=== PATIENT | female | born 1950 | race African-American/Black ===

== ENCOUNTER 2016-04-27 06:20 | Inpatient (IN) | payer MEDICARE, OTHER ==
[~2016-04-27] VITALS: Ht 152.4 cm; Wt 63.3 kg
[2016-04-27] VITALS (7 sets, daily range): BP systolic 119–172; BP diastolic 67–98
[~2016-04-27 06:20] MED LIST: BENICAR PO; CARVEDILOL PO; DIALYVITE; DOXAZOSIN; LISI-186 PO; NIFEDIPINE PO; SENSIPAR
[2016-04-27] MEDS ORDERED: IPRATROPIUM BROMIDE (0.02%) 0.5MG/2.5ML NEB HHN STA (06:33)
[2016-04-27] MEDS ORDERED: ALBUTEROL (0.083%) 2.5MG/3ML NEB HHN STA (06:33)
[2016-04-27] MEDS ORDERED: NIFEDIPINE XL 60MG TAB PO ONE (06:45)
[2016-04-27] MEDS ORDERED: LOSARTAN POTASSIUM 100 MG TABLET PO ONE (06:45)
[2016-04-27] MEDS ORDERED: CARVEDILOL 25MG TABLET PO ONE (06:45)
[2016-04-27] MEDS ORDERED: NITROGLYCERIN OINT 1GM/INCH UDPKT TD STA (06:53)
[2016-04-27] MEDS ORDERED: NITROGLYCERIN 0.4MG TABLET SL SL PRN (07:00)
[2016-04-27 07:11] LABS: BASOPHILS % 1.2 % (0.0-2.0); EOSINOPHILS % 2.4 % (0.0-5.0); HEMATOCRIT. 34.9 % (36.0-48.0); HEMOGLOBIN. 11.4 g/dL (12.0-16.0); LYMPHOCYTES % 17.3 % (20.0-50.0); MEAN CORPUSCULAR HEMOGLOBIN 30.7 pg (28.0-32.0); MEAN CORPUSCULAR HGB CONC 32.8 g/dL (31.0-37.0); MEAN CORPUSCULAR VOLUME 93.7 fL (81.0-99.0); MEAN PLATELET VOLUME 8.1 fl (7.4-10.4); MONOCYTES % 8.4 % (2.0-8.0); NEUTROPHILS % 70.7 % (40.0-76.0); PLATELET 229 x1000/uL (130-400); RED BLOOD CELL COUNT 3.72 mill/uL (4.2-5.4); RED CELL DISTRIBUTION WIDTH 16.1 % (11.6-14.6); WHITE BLOOD COUNT 6.8 x1000/uL (4.5-11.0)
[2016-04-27 07:12] LABS: INR 1.1; PARTIAL THROMBOPLASTIN TIME 26.8 sec (24.0-34.0); PROTHROMBIN TIME 11.1 sec
[2016-04-27 07:13] LABS: BG BASE EXCESS -1.5 mmol/L (-2.0-2.0); BG CARBOXYHEMOGLOBIN 1.6 % (0.5-1.5); BG DEOXYHEMOGLOBIN 0.9 % (0.0-5.0); BG FRACTION INSPIRED OXYGEN 45; BG HCO3 ACT 23.9 mmol/L (22.0-26.0); BG METHEMOGLOBIN 0.1 % (0.0-1.5); BG OXYGEN SATURATION 99.1 % (92.0-98.5); BG OXYHEMOGLOBIN 97.4 % (94.0-97.0); BG PCO2 42.6 mmHg (35.0-45.0); BG PH 7.366 (7.350-7.450); BG SAMPLE SITE RIGHT RADIAL; BG TOTAL HEMOGLOBIN 11.6 g/dL (12.0-18.0)
[2016-04-27 07:21] LABS: ALANINE AMINOTRANSFERASE 23 IU/L (13-61); ALBUMIN 3.4 g/dL (3.4-5.0); ANION GAP 17; CALCIUM 8.9 mg/dL (8.5-10.1); CARBON DIOXIDE 27 mEq/L (21-32); CHLORIDE 103 mEq/L (98-107); INDEX HEMOLYSI 1 (1-3); INDEX ICTERIC 1 (1-4); INDEX LIPEMIC 1 (1-3); LIPASE 970 IU/L (73-393); MAGNESIUM 2.4 mg/dL (1.8-2.4); PHOSPHORUS 5.9 mg/dL (2.5-4.9); TROPONIN I 0.22 ng/mL (0.00-0.04); UREA NITROGEN BLOOD 56 mg/dL (7-21); eGFR 5 mL/min (>60)
[2016-04-27] MEDS ORDERED: HYDROCODONE/ACETAMINOPHEN 5/325MG TABLET PO PRN (08:30)
[2016-04-27] MEDS ORDERED: DIPHENHYDRAMINE 50MG/ML VIAL IV PRN (08:30)
[2016-04-27] MEDS ORDERED: ACETAMINOPHEN 325MG TABLET PO PRN (08:30)
[2016-04-27] MEDS ORDERED: HYDRALAZINE HCL 50MG TABLET PO SCH (09:00)
[2016-04-27] MEDS ORDERED: CINACALCET HCL 60MG TABLET PO SCH (09:00)
[2016-04-27] MEDS ORDERED: CARVEDILOL 12.5MG TABLET PO SCH (09:11)
[2016-04-27] MEDS: IPRATROPIUM/ALBUTEROL 0.5-3(2.5)MG/3ML NEB INH PRN ×2 (11:06→17:42)
[2016-04-27] MEDS: SEVELAMER CARBONATE 800 MG TABLET PO SCH ×2 (12:09→17:34)
[2016-04-27] MEDS: CINACALCET HCL 60MG TABLET PO SCH (12:09)
[2016-04-27] MEDS: CLONIDINE 0.1MG TABLET PO PRN (15:04)
[2016-04-27] MEDS: CARVEDILOL 25MG TABLET PO SCH (21:08)
[2016-04-27] MEDS: ENOXAPARIN 30MG/0.3ML SYR SUBCUT SCH (21:08)
[2016-04-28] VITALS (12 sets, daily range): BP systolic 120–169; BP diastolic 65–117
[2016-04-28 06:54] LABS: BASOPHILS % 0.9 % (0.0-2.0); EOSINOPHILS % 1.4 % (0.0-5.0); HEMATOCRIT. 32.5 % (36.0-48.0); HEMOGLOBIN. 10.7 g/dL (12.0-16.0); MEAN CORPUSCULAR HEMOGLOBIN 30.6 pg (28.0-32.0); MEAN CORPUSCULAR HGB CONC 32.9 g/dL (31.0-37.0); MEAN CORPUSCULAR VOLUME 92.8 fL (81.0-99.0); MEAN PLATELET VOLUME 8.3 fl (7.4-10.4); MONOCYTES % 12.5 % (2.0-8.0); NEUTROPHILS % 71.2 % (40.0-76.0); PLATELET 195 x1000/uL (130-400); RED CELL DISTRIBUTION WIDTH 15.8 % (11.6-14.6); WHITE BLOOD COUNT 6.3 x1000/uL (4.5-11.0)
[2016-04-28 07:23] LABS: ALANINE AMINOTRANSFERASE 14 IU/L (13-61); ALBUMIN 2.9 g/dL (3.4-5.0); ANION GAP 17; CALCIUM 8.5 mg/dL (8.5-10.1); CARBON DIOXIDE 28 mEq/L (21-32); CHLORIDE 96 mEq/L (98-107); HDL CHOLESTEROL 69 mg/dL (40-59); INDEX HEMOLYSI 2 (1-3); INDEX ICTERIC 1 (1-4); INDEX LIPEMIC 1 (1-3); LDL CHOLESTEROL 99 mg/dL (5-100); PHOSPHORUS 5.8 mg/dL (2.5-4.9); TRIGLYCERIDE 62 mg/dL (0-150); UREA NITROGEN BLOOD 33 mg/dL (7-21); eGFR 8 mL/min (>60)
[2016-04-28] MEDS: NIFEDIPINE XL 60MG TAB PO SCH (08:49)
[2016-04-28] MEDS: CARVEDILOL 25MG TABLET PO SCH ×2 (08:49→20:16)
[2016-04-28] MEDS: CINACALCET HCL 60MG TABLET PO SCH (08:49)
[2016-04-28] MEDS: SEVELAMER CARBONATE 800 MG TABLET PO SCH ×3 (08:49→18:31)
[2016-04-28] MEDS ORDERED: LISINOPRIL 5MG TABLET PO SCH (09:00)
[2016-04-28] MEDS: LOSARTAN POTASSIUM 100 MG TABLET PO SCH (09:30)
[2016-04-28] MEDS: GUAIFENESIN 600MG ER TABLET PO SCH ×2 (09:40→20:16)
[2016-04-28] MEDS: IPRATROPIUM/ALBUTEROL 0.5-3(2.5)MG/3ML NEB INH PRN ×3 (10:40→21:33)
[2016-04-28] MEDS ORDERED: REGADENOSON 0.4 MG/5 ML IV ONE (13:45)
[2016-04-28] MEDS: MUPIROCIN 2% OINT 22GM TOP SCH ×2 (16:16→21:35)
[2016-04-28] MEDS ORDERED: VANCOMYCIN HCL 1 GM/VIAL PO SCH (18:00)
[2016-04-28] MEDS: VANCOMYCIN HCL 1000 MG/20 ML ORAL PO SCH ×2 (18:32→23:15)
[2016-04-28] MEDS: ENOXAPARIN 30MG/0.3ML SYR SUBCUT SCH (20:17)
[2016-04-29] VITALS (10 sets, daily range): BP systolic 118–193; BP diastolic 58–113
[2016-04-29] MEDS: IPRATROPIUM/ALBUTEROL 0.5-3(2.5)MG/3ML NEB INH PRN (02:07)
[2016-04-29] MEDS: MUPIROCIN 2% OINT 22GM TOP SCH ×3 (05:29→22:04)
[2016-04-29] MEDS: VANCOMYCIN HCL 1000 MG/20 ML ORAL PO SCH ×4 (05:29→23:58)
[2016-04-29 05:57] LABS: BASOPHILS % 0.8 % (0.0-2.0); EOSINOPHILS % 1.8 % (0.0-5.0); HEMATOCRIT. 32.3 % (36.0-48.0); HEMOGLOBIN. 10.7 g/dL (12.0-16.0); MEAN CORPUSCULAR HGB CONC 33.1 g/dL (31.0-37.0); MEAN CORPUSCULAR VOLUME 93.5 fL (81.0-99.0); MONOCYTES % 14.8 % (2.0-8.0); NEUTROPHILS % 64.6 % (40.0-76.0); PLATELET 145 x1000/uL (130-400); RED BLOOD CELL COUNT 3.46 mill/uL (4.2-5.4); RED CELL DISTRIBUTION WIDTH 15.6 % (11.6-14.6); WHITE BLOOD COUNT 5.2 x1000/uL (4.5-11.0)
[2016-04-29 06:19] LABS: CALCIUM 8.3 mg/dL (8.5-10.1)
[2016-04-29 07:01] LABS: PHOSPHORUS 8.1 mg/dL (2.5-4.9)
[2016-04-29] MEDS: SEVELAMER CARBONATE 800 MG TABLET PO SCH ×4 (08:00→17:53)
[2016-04-29] MEDS ORDERED: SODIUM POLYSTYRENE SULFONATE 15 G/60 ML BOT PO SCH (08:15)
[2016-04-29] MEDS: LOSARTAN POTASSIUM 100 MG TABLET PO SCH (08:17)
[2016-04-29] MEDS: GUAIFENESIN 600MG ER TABLET PO SCH ×2 (08:17→20:39)
[2016-04-29] MEDS: NIFEDIPINE XL 60MG TAB PO SCH (08:18)
[2016-04-29] MEDS: CINACALCET HCL 60MG TABLET PO SCH (08:18)
[2016-04-29] MEDS: CARVEDILOL 25MG TABLET PO SCH ×2 (08:19→20:40)
[2016-04-29] MEDS: ENOXAPARIN 60MG/0.6ML SYR SUBCUT SCH (11:35)
[2016-04-29] MEDS: ASPIRIN 81MG EC TABLET PO SCH (11:35)
[2016-04-29] MEDS: ATORVASTATIN CALCIUM 20MG TABLET PO SCH (20:39)
[2016-04-30] VITALS (8 sets, daily range): BP systolic 105–160; BP diastolic 51–95
[2016-04-30] MEDS: IPRATROPIUM/ALBUTEROL 0.5-3(2.5)MG/3ML NEB INH PRN ×4 (01:17→12:26)
[2016-04-30] MEDS: MUPIROCIN 2% OINT 22GM TOP SCH ×3 (05:16→21:25)
[2016-04-30] MEDS: VANCOMYCIN HCL 1000 MG/20 ML ORAL PO SCH ×4 (05:16→23:32)
[2016-04-30 05:48] LABS: BASOPHILS % 0.8 % (0.0-2.0); EOSINOPHILS % 2.8 % (0.0-5.0); HEMATOCRIT. 32.8 % (36.0-48.0); HEMOGLOBIN. 10.8 g/dL (12.0-16.0); LYMPHOCYTES % 21.6 % (20.0-50.0); MEAN CORPUSCULAR HEMOGLOBIN 30.7 pg (28.0-32.0); MEAN CORPUSCULAR HGB CONC 32.9 g/dL (31.0-37.0); MEAN CORPUSCULAR VOLUME 93.2 fL (81.0-99.0); MEAN PLATELET VOLUME 8.5 fl (7.4-10.4); MONOCYTES % 14.4 % (2.0-8.0); NEUTROPHILS % 60.4 % (40.0-76.0); PLATELET 170 x1000/uL (130-400); RED BLOOD CELL COUNT 3.52 mill/uL (4.2-5.4); RED CELL DISTRIBUTION WIDTH 15.7 % (11.6-14.6)
[2016-04-30 06:57] LABS: CALCIUM 8.2 mg/dL (8.5-10.1); PHOSPHORUS 7.8 mg/dL (2.5-4.9)
[2016-04-30] MEDS: SEVELAMER CARBONATE 800 MG TABLET PO SCH ×3 (07:40→19:36)
[2016-04-30] MEDS: CLONIDINE 0.1MG TABLET PO PRN (08:02)
[2016-04-30] MEDS: ENOXAPARIN 60MG/0.6ML SYR SUBCUT SCH (10:40)
[2016-04-30] MEDS: NIFEDIPINE XL 60MG TAB PO SCH (10:40)
[2016-04-30] MEDS: CINACALCET HCL 60MG TABLET PO SCH (10:40)
[2016-04-30] MEDS: GUAIFENESIN 600MG ER TABLET PO SCH ×2 (10:40→21:21)
[2016-04-30] MEDS: ASPIRIN 81MG EC TABLET PO SCH (10:40)
[2016-04-30] MEDS: CARVEDILOL 25MG TABLET PO SCH ×2 (10:41→21:21)
[2016-04-30] MEDS: LOSARTAN POTASSIUM 100 MG TABLET PO SCH (10:42)
[2016-04-30] MEDS ORDERED: METHYLPREDNISOLONE SOD SUCC 125 MG/2 ML VIAL IV SCH (13:15)
[2016-04-30] MEDS: RACEPINEPHRINE 2.25% 0.5ML NEB VIAL HHN PRN ×2 (15:47→19:53)
[2016-04-30] MEDS: IPRATROPIUM/ALBUTEROL 0.5-3(2.5)MG/3ML NEB HHN SCH ×2 (15:47→19:53)
[2016-04-30] MEDS: ONDANSETRON HCL 4MG/2ML VIAL IV PRN (20:27)
[2016-04-30] MEDS: ATORVASTATIN CALCIUM 20MG TABLET PO SCH (21:20)
[2016-04-30] MEDS: METHYLPREDNISOLONE SOD SUCC 125 MG/2 ML VIAL IV SCH (21:25)
[2016-05-01] VITALS (14 sets, daily range): BP systolic 109–153; BP diastolic 45–80
[2016-05-01] MEDS: IPRATROPIUM/ALBUTEROL 0.5-3(2.5)MG/3ML NEB HHN SCH ×6 (00:42→20:39)
[2016-05-01] MEDS: RACEPINEPHRINE 2.25% 0.5ML NEB VIAL HHN PRN ×3 (00:42→08:38)
[2016-05-01] MEDS: METHYLPREDNISOLONE SOD SUCC 125 MG/2 ML VIAL IV SCH ×3 (05:49→21:13)
[2016-05-01] MEDS: VANCOMYCIN HCL 1000 MG/20 ML ORAL PO SCH ×4 (05:49→23:40)
[2016-05-01] MEDS: MUPIROCIN 2% OINT 22GM TOP SCH ×3 (05:49→21:14)
[2016-05-01 06:16] LABS: HEMATOCRIT. 35.9 % (36.0-48.0); HEMOGLOBIN. 11.7 g/dL (12.0-16.0); MEAN CORPUSCULAR HEMOGLOBIN 30.8 pg (28.0-32.0); MEAN CORPUSCULAR HGB CONC 32.7 g/dL (31.0-37.0); MEAN CORPUSCULAR VOLUME 94.2 fL (81.0-99.0); MEAN PLATELET VOLUME 8.4 fl (7.4-10.4); PLATELET 164 x1000/uL (130-400); RED BLOOD CELL COUNT 3.81 mill/uL (4.2-5.4); RED CELL DISTRIBUTION WIDTH 15.2 % (11.6-14.6); WHITE BLOOD COUNT 5.7 x1000/uL (4.5-11.0)
[2016-05-01 06:51] LABS: CALCIUM 8.7 mg/dL (8.5-10.1); PHOSPHORUS 7.6 mg/dL (2.5-4.9)
[2016-05-01 07:04] LABS: DIFFERENTIAL COMMENT 1
[2016-05-01] MEDS: CARVEDILOL 25MG TABLET PO SCH ×2 (09:00→21:13)
[2016-05-01] MEDS ORDERED: LISINOPRIL 5MG TABLET PO SCH ×2 (09:00)
[2016-05-01] MEDS: LOSARTAN POTASSIUM 25 MG TABLET PO SCH (09:33)
[2016-05-01] MEDS: ASPIRIN 81MG EC TABLET PO SCH (09:34)
[2016-05-01] MEDS: GUAIFENESIN 600MG ER TABLET PO SCH ×2 (09:34→21:13)
[2016-05-01] MEDS: NIFEDIPINE XL 60MG TAB PO SCH (09:35)
[2016-05-01] MEDS: ENOXAPARIN 60MG/0.6ML SYR SUBCUT SCH (09:36)
[2016-05-01 11:18] LABS: PLATELET ESTIMATE NORMAL
[2016-05-01] MEDS: CINACALCET HCL 60MG TABLET PO SCH (12:23)
[2016-05-01] MEDS: SEVELAMER CARBONATE 800 MG TABLET PO SCH ×3 (12:48→17:56)
[2016-05-01] MEDS ORDERED: SODIUM POLYSTYRENE SULFONATE 15 G/60 ML BOT PO NR (14:30)
[2016-05-01] MEDS: ATORVASTATIN CALCIUM 20MG TABLET PO SCH (21:00)
[2016-05-02] VITALS (24 sets, daily range): BP systolic 104–161; BP diastolic 51–116
[2016-05-02] MEDS: IPRATROPIUM/ALBUTEROL 0.5-3(2.5)MG/3ML NEB HHN SCH ×6 (00:27→20:27)
[2016-05-02] MEDS: VANCOMYCIN HCL 1000 MG/20 ML ORAL PO SCH ×4 (05:23→23:33)
[2016-05-02] MEDS: METHYLPREDNISOLONE SOD SUCC 125 MG/2 ML VIAL IV SCH (05:24)
[2016-05-02] MEDS: MUPIROCIN 2% OINT 22GM TOP SCH ×3 (05:29→21:12)
[2016-05-02] MEDS: SEVELAMER CARBONATE 800 MG TABLET PO SCH ×4 (06:43→17:56)
[2016-05-02 07:51] LABS: HEMATOCRIT. 34.6 % (36.0-48.0); HEMOGLOBIN. 11.3 g/dL (12.0-16.0); MEAN CORPUSCULAR HEMOGLOBIN 30.4 pg (28.0-32.0); MEAN CORPUSCULAR HGB CONC 32.7 g/dL (31.0-37.0); MEAN PLATELET VOLUME 8.5 fl (7.4-10.4); PLATELET 171 x1000/uL (130-400); RED BLOOD CELL COUNT 3.72 mill/uL (4.2-5.4); WHITE BLOOD COUNT 9.4 x1000/uL (4.5-11.0)
[2016-05-02 07:55] LABS: DIFFERENTIAL COMMENT 1
[2016-05-02] MEDS: ASPIRIN 81MG EC TABLET PO SCH (08:04)
[2016-05-02] MEDS: GUAIFENESIN 600MG ER TABLET PO SCH ×2 (08:04→20:22)
[2016-05-02] MEDS: CINACALCET HCL 60MG TABLET PO SCH (08:04)
[2016-05-02] MEDS: LOSARTAN POTASSIUM 25 MG TABLET PO SCH (08:06)
[2016-05-02] MEDS: NIFEDIPINE XL 60MG TAB PO SCH (08:06)
[2016-05-02] MEDS: ENOXAPARIN 60MG/0.6ML SYR SUBCUT SCH (08:06)
[2016-05-02] MEDS: CARVEDILOL 25MG TABLET PO SCH ×2 (08:06→20:22)
[2016-05-02 08:19] LABS: CALCIUM 8.1 mg/dL (8.5-10.1); MAGNESIUM 2.4 mg/dL (1.8-2.4); PHOSPHORUS 6.7 mg/dL (2.5-4.9)
[2016-05-02 09:20] LABS: TROPONIN I 0.71 ng/mL (0.00-0.04)
[2016-05-02 10:25] LABS: PLATELET ESTIMATE NORMAL
[2016-05-02] MEDS: ATORVASTATIN CALCIUM 20MG TABLET PO SCH (20:20)
[2016-05-02] MEDS: METHYLPREDNISOLONE SOD SUCC 40 MG/ML VIAL IV SCH (20:21)
[2016-05-03] VITALS (29 sets, daily range): BP systolic 114–181; BP diastolic 55–99
[2016-05-03] MEDS: IPRATROPIUM/ALBUTEROL 0.5-3(2.5)MG/3ML NEB HHN SCH ×6 (04:22→20:20)
[2016-05-03] MEDS: MUPIROCIN 2% OINT 22GM TOP SCH ×3 (06:00→21:18)
[2016-05-03] MEDS: VANCOMYCIN HCL 1000 MG/20 ML ORAL PO SCH ×3 (06:00→17:58)
[2016-05-03 06:59] LABS: HEMOGLOBIN. 11.9 g/dL (12.0-16.0); MEAN CORPUSCULAR HEMOGLOBIN 30.6 pg (28.0-32.0); MEAN CORPUSCULAR HGB CONC 32.9 g/dL (31.0-37.0); MEAN CORPUSCULAR VOLUME 93.1 fL (81.0-99.0); MEAN PLATELET VOLUME 8.5 fl (7.4-10.4); PLATELET 186 x1000/uL (130-400); RED BLOOD CELL COUNT 3.87 mill/uL (4.2-5.4); RED CELL DISTRIBUTION WIDTH 15.1 % (11.6-14.6); WHITE BLOOD COUNT 9.5 x1000/uL (4.5-11.0)
[2016-05-03 07:08] LABS: MAGNESIUM 2.4 mg/dL (1.8-2.4)
[2016-05-03 07:09] LABS: PHOSPHORUS 5.4 mg/dL (2.5-4.9)
[2016-05-03 07:25] LABS: DIFFERENTIAL COMMENT 1
[2016-05-03] MEDS: ENOXAPARIN 60MG/0.6ML SYR SUBCUT SCH (08:01)
[2016-05-03] MEDS: CARVEDILOL 25MG TABLET PO SCH ×2 (08:03→21:35)
[2016-05-03] MEDS: GUAIFENESIN 600MG ER TABLET PO SCH ×2 (08:03→21:18)
[2016-05-03] MEDS: ASPIRIN 81MG EC TABLET PO SCH (08:03)
[2016-05-03] MEDS: SEVELAMER CARBONATE 800 MG TABLET PO SCH ×3 (08:03→17:58)
[2016-05-03] MEDS: METHYLPREDNISOLONE SOD SUCC 40 MG/ML VIAL IV SCH (08:03)
[2016-05-03] MEDS: NIFEDIPINE XL 60MG TAB PO SCH (08:04)
[2016-05-03] MEDS: LOSARTAN POTASSIUM 25 MG TABLET PO SCH (08:04)
[2016-05-03] MEDS: CINACALCET HCL 60MG TABLET PO SCH (08:04)
[2016-05-03 10:40] LABS: PLATELET ESTIMATE NORMAL
[2016-05-03] MEDS ORDERED: METHYLPREDNISOLONE SOD SUCC 40 MG/ML VIAL IV SCH (21:00)
[2016-05-03] MEDS: ATORVASTATIN CALCIUM 20MG TABLET PO SCH ×2 (21:00→21:18)
[2016-05-04] VITALS (36 sets, daily range): BP systolic 67–153; BP diastolic 27–90
[2016-05-04] MEDS: VANCOMYCIN HCL 1000 MG/20 ML ORAL PO SCH ×3 (00:05→13:06)
[2016-05-04] MEDS: IPRATROPIUM/ALBUTEROL 0.5-3(2.5)MG/3ML NEB HHN SCH ×4 (00:36→11:52)
[2016-05-04] MEDS: MUPIROCIN 2% OINT 22GM TOP SCH ×2 (05:17→13:06)
[2016-05-04 06:22] LABS: HEMATOCRIT. 36.8 % (36.0-48.0); HEMOGLOBIN. 11.9 g/dL (12.0-16.0); MEAN CORPUSCULAR HEMOGLOBIN 30.4 pg (28.0-32.0); MEAN CORPUSCULAR HGB CONC 32.2 g/dL (31.0-37.0); MEAN CORPUSCULAR VOLUME 94.4 fL (81.0-99.0); MEAN PLATELET VOLUME 9.1 fl (7.4-10.4); PLATELET 219 x1000/uL (130-400); RED CELL DISTRIBUTION WIDTH 14.9 % (11.6-14.6); WHITE BLOOD COUNT 11.7 x1000/uL (4.5-11.0)
[2016-05-04 06:47] LABS: CALCIUM 8.7 mg/dL (8.5-10.1); MAGNESIUM 2.2 mg/dL (1.8-2.4); PHOSPHORUS 6.1 mg/dL (2.5-4.9)
[2016-05-04 06:54] LABS: DIFFERENTIAL COMMENT 1
[2016-05-04] MEDS ORDERED: PREDNISONE 20MG TABLET PO SCH (07:20)
[2016-05-04] MEDS: GUAIFENESIN 600MG ER TABLET PO SCH (08:20)
[2016-05-04] MEDS: SEVELAMER CARBONATE 800 MG TABLET PO SCH ×2 (08:20→13:06)
[2016-05-04] MEDS: ASPIRIN 81MG EC TABLET PO SCH (08:20)
[2016-05-04] MEDS: CINACALCET HCL 60MG TABLET PO SCH (08:20)
[2016-05-04] MEDS: CARVEDILOL 25MG TABLET PO SCH (08:22)
[2016-05-04] MEDS: NIFEDIPINE XL 60MG TAB PO SCH (08:22)
[2016-05-04] MEDS ORDERED: ENOXAPARIN 60MG/0.6ML SYR SUBCUT SCH (09:00)
[2016-05-04] MEDS ORDERED: LOSARTAN POTASSIUM 25 MG TABLET PO SCH (09:00)
[2016-05-04] MEDS: ONDANSETRON HCL 4MG/2ML VIAL IV PRN (10:21)
[2016-05-04 11:18] LABS: PLATELET ESTIMATE NORMAL
[2016-05-04] MEDS ORDERED: CALCIUM ACETATE 667MG CAPSULE PO SCH (17:20)
[2016-05-05 04:26] LABS: OVA & PARASITE EXAM Final report (.)
== END 2016-05-04 14:07 | disposition home or self-care (01) | DRG 280 ==
LOC: ER 06:26 → 5EST 07:01 → 8WST 04-29 23:20 → 3WST 04-30 16:13
PROVIDERS: ADMIT Internal Medicine; ATTEND Internal Medicine
PROC: 5A1D60Z (ICD-10-PCS; principal; 2016-04-27)
DX: I21.4 Non-ST elevation (NSTEMI) myocardial infarction (principal); N18.6 End stage renal disease; A04.7 Enterocolitis due to Clostridium difficile; I13.2 Hypertensive heart and chronic kidney disease with heart failure and with stage 5 chronic kidney disease, or end stage renal disease; D63.1 Anemia in chronic kidney disease; I27.2 Other secondary pulmonary hypertension; E87.5 Hyperkalemia; E78.5 Hyperlipidemia, unspecified; E83.39 Other disorders of phosphorus metabolism; I07.1 Rheumatic tricuspid insufficiency; I25.10 Atherosclerotic heart disease of native coronary artery without angina pectoris; I27.81 Cor pulmonale (chronic); I50.9 Heart failure, unspecified; J31.0 Chronic rhinitis; J39.8 Other specified diseases of upper respiratory tract; K44.9 Diaphragmatic hernia without obstruction or gangrene; K57.30 Diverticulosis of large intestine without perforation or abscess without bleeding; K80.20 Calculus of gallbladder without cholecystitis without obstruction; N20.0 Calculus of kidney; N28.1 Cyst of kidney, acquired; R56.9 Unspecified convulsions; Z82.49 Family history of ischemic heart disease and other diseases of the circulatory system; Z83.3 Family history of diabetes mellitus; Z99.2 Dependence on renal dialysis; Z87.01 Personal history of pneumonia (recurrent); Z87.891 Personal history of nicotine dependence; Z90.49 Acquired absence of other specified parts of digestive tract; Z88.5 Allergy status to narcotic agent; Z88.8 Allergy status to other drugs, medicaments and biological substances; Z79.899 Other long term (current) drug therapy
CPT/HCPCS: 36415; 36600; 70490; 71010; 71250; 80048; 80053; 80061; 82270; 82375; 82805; 83690; 83735; 83880; 84100; 84443; 84484; 85025; 85610; 85730; 87015; 87045; 87177; 87209; 87427; 87449; 87493; 93005; 93306; 94640; 94664; 99291; J1200; J1650; J2405; J2920; J2930; J3370; J7030; J7512; J7611; J7620

== ENCOUNTER 2016-05-09 06:19 | Inpatient (IN) | payer MEDICARE, OTHER ==
[2016-05-09] VITALS (7 sets, daily range): BP systolic 134–227; BP diastolic 69–127
[~2016-05-09] VITALS: Ht 157.5 cm; Wt 65.1 kg
[2016-05-09] MEDS ORDERED: IPRATROPIUM/ALBUTEROL 0.5-3(2.5)MG/3ML NEB HHN ONE (06:45)
[2016-05-09 06:55] LABS: BASOPHILS % 0.4 % (0.0-2.0); EOSINOPHILS % 1.7 % (0.0-5.0); HEMATOCRIT. 35.8 % (36.0-48.0); HEMOGLOBIN. 11.6 g/dL (12.0-16.0); LYMPHOCYTES % 11.5 % (20.0-50.0); MEAN CORPUSCULAR HEMOGLOBIN 29.9 pg (28.0-32.0); MEAN CORPUSCULAR HGB CONC 32.4 g/dL (31.0-37.0); MEAN CORPUSCULAR VOLUME 92.3 fL (81.0-99.0); MEAN PLATELET VOLUME 8.2 fl (7.4-10.4); MONOCYTES % 7.5 % (2.0-8.0); NEUTROPHILS % 78.9 % (40.0-76.0); PLATELET 244 x1000/uL (130-400); RED BLOOD CELL COUNT 3.88 mill/uL (4.2-5.4); WHITE BLOOD COUNT 12.8 x1000/uL (4.5-11.0)
[2016-05-09 06:56] LABS: BG BASE EXCESS -4.8 mmol/L (-2.0-2.0); BG CARBOXYHEMOGLOBIN 0.3 % (0.5-1.5); BG DEOXYHEMOGLOBIN 2.6 % (0.0-5.0); BG FRACTION INSPIRED OXYGEN 21; BG HCO3 ACT 21.8 mmol/L (22.0-26.0); BG METHEMOGLOBIN 0.3 % (0.0-1.5); BG OXYGEN SATURATION 97.4 % (92.0-98.5); BG OXYHEMOGLOBIN 96.8 % (94.0-97.0); BG PCO2 46.2 mmHg (35.0-45.0); BG PH 7.291 (7.350-7.450); BG PO2 106.6 mmHg (75.0-100.0); BG SAMPLE SITE RIGHT RADIAL; BG TOTAL HEMOGLOBIN 12.1 g/dL (12.0-18.0); BG VENT MODE ROOM AIR
[2016-05-09 06:59] LABS: INR 1.4; PARTIAL THROMBOPLASTIN TIME 25.6 sec (24.0-34.0); PROTHROMBIN TIME 14.2 sec
[2016-05-09 07:15] LABS: ALANINE AMINOTRANSFERASE 30 IU/L (13-61); ALBUMIN 3.8 g/dL (3.4-5.0); ANION GAP 17; CALCIUM 8.9 mg/dL (8.5-10.1); CARBON DIOXIDE 27 mEq/L (21-32); CHLORIDE 100 mEq/L (98-107); INDEX HEMOLYSI 1 (1-3); INDEX ICTERIC 1 (1-4); INDEX LIPEMIC 1 (1-3); LIPASE 2144 IU/L (73-393); NT PRO B-TYPE NATRIURETIC PEP 28465 pg/mL (5-125); UREA NITROGEN BLOOD 70 mg/dL (7-21); eGFR 6 mL/min (>60)
[2016-05-09 07:16] LABS: TROPONIN I 0.99 ng/mL (0.00-0.04)
[2016-05-09] MEDS ORDERED: DOCUSATE SODIUM 100MG CAPSULE PO PRN (08:45)
[2016-05-09] MEDS ORDERED: ONDANSETRON HCL 4MG/2ML VIAL IV PRN (08:45)
[2016-05-09] MEDS ORDERED: MAGNESIUM/ALUMINUM HYDROXIDE/SIMETHICONE 30ML UDC PO PRN (08:45)
[2016-05-09] MEDS ORDERED: ACETAMINOPHEN 325MG TABLET PO PRN (08:45)
[2016-05-09] MEDS ORDERED: CEFTRIAXONE 1 G PREMIX 50 ML IV SCH (09:00)
[2016-05-09] MEDS: BUDESONIDE 0.5MG/2ML NEB HHN SCH ×2 (09:30→20:51)
[2016-05-09] MEDS ORDERED: IPRATROPIUM/ALBUTEROL 0.5-3(2.5)MG/3ML NEB ONE (09:35)
[2016-05-09] MEDS: CLONIDINE 0.1MG TABLET PO PRN ×2 (10:06→20:32)
[2016-05-09] MEDS: IPRATROPIUM/ALBUTEROL 0.5-3(2.5)MG/3ML NEB INH PRN ×3 (10:12→20:49)
[2016-05-09] MEDS ORDERED: AZITHROMYCIN 500 MG TABLET PO SCH (13:00)
[2016-05-09] MEDS: METHYLPREDNISOLONE SOD SUCC 40 MG/ML VIAL IV SCH ×2 (13:52→21:57)
[2016-05-09] MEDS: HEPARIN 5000 UNITS/ML VIAL SUBCUT SCH ×3 (13:54→20:40)
[2016-05-09] MEDS: CEFTRIAXONE 1 G PREMIX 50 ML IV SCH (16:25)
[2016-05-09] MEDS: RACEPINEPHRINE 2.25% 0.5ML NEB VIAL HHN PRN (20:51)
[2016-05-10] VITALS (12 sets, daily range): BP systolic 120–180; BP diastolic 64–101
[2016-05-10] MEDS: RACEPINEPHRINE 2.25% 0.5ML NEB VIAL HHN PRN ×3 (00:29→09:23)
[2016-05-10] MEDS: IPRATROPIUM/ALBUTEROL 0.5-3(2.5)MG/3ML NEB INH PRN ×3 (00:29→20:39)
[2016-05-10] MEDS: METHYLPREDNISOLONE SOD SUCC 40 MG/ML VIAL IV SCH ×3 (05:42→21:35)
[2016-05-10 06:33] LABS: HEMOGLOBIN. 10.4 g/dL (12.0-16.0); MEAN CORPUSCULAR HEMOGLOBIN 29.9 pg (28.0-32.0); MEAN CORPUSCULAR HGB CONC 32.5 g/dL (31.0-37.0); MEAN PLATELET VOLUME 8.4 fl (7.4-10.4); PLATELET 295 x1000/uL (130-400); RED BLOOD CELL COUNT 3.47 mill/uL (4.2-5.4); RED CELL DISTRIBUTION WIDTH 14.9 % (11.6-14.6); WHITE BLOOD COUNT 11.9 x1000/uL (4.5-11.0)
[2016-05-10 07:04] LABS: MAGNESIUM 2.4 mg/dL (1.8-2.4)
[2016-05-10 07:05] LABS: CREATINE KINASE MB FRACTION 8.8 ng/mL (0.5-3.6)
[2016-05-10 07:30] LABS: DIFFERENTIAL COMMENT 1
[2016-05-10 08:19] LABS: TROPONIN I 0.81 ng/mL (0.00-0.04)
[2016-05-10] MEDS: HEPARIN 5000 UNITS/ML VIAL SUBCUT SCH ×2 (09:00→21:33)
[2016-05-10] MEDS: BUDESONIDE 0.5MG/2ML NEB HHN SCH ×2 (09:23→20:39)
[2016-05-10] MEDS: CARVEDILOL 12.5MG TABLET PO SCH ×2 (09:36→21:34)
[2016-05-10] MEDS: LOSARTAN POTASSIUM 50 MG TABLET PO SCH (09:36)
[2016-05-10] MEDS: NIFEDIPINE XL 60MG TAB PO SCH (09:37)
[2016-05-10] MEDS: LACTOBACILLUS GG CAPSULE PO SCH (09:37)
[2016-05-10] MEDS: FOLIC ACID/VITAMIN B COMP W-C TABLET PO SCH (09:37)
[2016-05-10] MEDS: CINACALCET HCL 60MG TABLET PO SCH (09:37)
[2016-05-10] MEDS: CEFTRIAXONE 1 G PREMIX 50 ML IV SCH (09:38)
[2016-05-10 12:01] LABS: PLATELET ESTIMATE NORMAL
[2016-05-10] MEDS: SEVELAMER CARBONATE 800 MG TABLET PO SCH ×2 (14:15→18:34)
[2016-05-10] MEDS: ATORVASTATIN CALCIUM 40MG TABLET PO SCH (21:34)
[2016-05-11] VITALS (12 sets, daily range): BP systolic 102–157; BP diastolic 51–106
[2016-05-11 05:43] LABS: HEMATOCRIT. 29.7 % (36.0-48.0); HEMOGLOBIN. 9.8 g/dL (12.0-16.0); MEAN CORPUSCULAR HEMOGLOBIN 30.2 pg (28.0-32.0); MEAN CORPUSCULAR HGB CONC 32.8 g/dL (31.0-37.0); MEAN PLATELET VOLUME 8.2 fl (7.4-10.4); PLATELET 256 x1000/uL (130-400); RED BLOOD CELL COUNT 3.23 mill/uL (4.2-5.4); RED CELL DISTRIBUTION WIDTH 14.8 % (11.6-14.6); WHITE BLOOD COUNT 12.2 x1000/uL (4.5-11.0)
[2016-05-11] MEDS: METHYLPREDNISOLONE SOD SUCC 40 MG/ML VIAL IV SCH ×3 (06:10→21:02)
[2016-05-11 06:39] LABS: CALCIUM 8.7 mg/dL (8.5-10.1)
[2016-05-11 06:59] LABS: DIFFERENTIAL COMMENT 1
[2016-05-11] MEDS: CEFTRIAXONE 1 G PREMIX 50 ML IV SCH (08:25)
[2016-05-11] MEDS: FOLIC ACID/VITAMIN B COMP W-C TABLET PO SCH (08:26)
[2016-05-11] MEDS: LACTOBACILLUS GG CAPSULE PO SCH (08:26)
[2016-05-11] MEDS: SEVELAMER CARBONATE 800 MG TABLET PO SCH ×3 (08:26→18:26)
[2016-05-11] MEDS: CARVEDILOL 12.5MG TABLET PO SCH ×2 (08:26→20:34)
[2016-05-11] MEDS: CINACALCET HCL 60MG TABLET PO SCH (08:26)
[2016-05-11] MEDS: NIFEDIPINE XL 60MG TAB PO SCH (08:26)
[2016-05-11] MEDS: LOSARTAN POTASSIUM 50 MG TABLET PO SCH (08:26)
[2016-05-11] MEDS: HEPARIN 5000 UNITS/ML VIAL SUBCUT SCH ×2 (08:27→20:35)
[2016-05-11] MEDS: BUDESONIDE 0.5MG/2ML NEB HHN SCH ×2 (09:08→20:20)
[2016-05-11] MEDS: IPRATROPIUM/ALBUTEROL 0.5-3(2.5)MG/3ML NEB INH PRN ×3 (09:08→20:19)
[2016-05-11] MEDS: RACEPINEPHRINE 2.25% 0.5ML NEB VIAL HHN PRN (09:16)
[2016-05-11 17:06] LABS: PLATELET ESTIMATE NORMAL
[2016-05-11] MEDS: ATORVASTATIN CALCIUM 40MG TABLET PO SCH (20:35)
[2016-05-11] MEDS: EPOETIN ALFA 4000UNITS/ML VIAL SUBCUT SCH (21:01)
[2016-05-12] VITALS (12 sets, daily range): BP systolic 107–153; BP diastolic 60–92
[2016-05-12] MEDS: METHYLPREDNISOLONE SOD SUCC 40 MG/ML VIAL IV SCH ×3 (05:41→21:27)
[2016-05-12] MEDS: RACEPINEPHRINE 2.25% 0.5ML NEB VIAL HHN PRN (05:45)
[2016-05-12 06:10] LABS: HEMATOCRIT. 29.4 % (36.0-48.0); HEMOGLOBIN. 9.7 g/dL (12.0-16.0); MEAN CORPUSCULAR HEMOGLOBIN 30.4 pg (28.0-32.0); MEAN CORPUSCULAR VOLUME 92.1 fL (81.0-99.0); MEAN PLATELET VOLUME 8.2 fl (7.4-10.4); PLATELET 242 x1000/uL (130-400); RED BLOOD CELL COUNT 3.19 mill/uL (4.2-5.4); RED CELL DISTRIBUTION WIDTH 14.6 % (11.6-14.6); WHITE BLOOD COUNT 13.1 x1000/uL (4.5-11.0)
[2016-05-12 06:44] LABS: DIFFERENTIAL COMMENT 1
[2016-05-12] MEDS: BUDESONIDE 0.5MG/2ML NEB HHN SCH ×2 (07:35→19:48)
[2016-05-12 07:43] LABS: CALCIUM 8.3 mg/dL (8.5-10.1); PHOSPHORUS 5.7 mg/dL (2.5-4.9)
[2016-05-12 07:54] LABS: PLATELET ESTIMATE NORMAL
[2016-05-12] MEDS: SEVELAMER CARBONATE 800 MG TABLET PO SCH ×3 (08:00→18:27)
[2016-05-12] MEDS: NIFEDIPINE XL 60MG TAB PO SCH (09:00)
[2016-05-12] MEDS: CARVEDILOL 12.5MG TABLET PO SCH ×2 (09:00→21:26)
[2016-05-12] MEDS: LACTOBACILLUS GG CAPSULE PO SCH ×2 (09:00→13:30)
[2016-05-12] MEDS: HEPARIN 5000 UNITS/ML VIAL SUBCUT SCH ×2 (09:00→21:27)
[2016-05-12] MEDS: FOLIC ACID/VITAMIN B COMP W-C TABLET PO SCH ×2 (09:00→13:30)
[2016-05-12] MEDS: CINACALCET HCL 60MG TABLET PO SCH ×2 (09:00→13:30)
[2016-05-12] MEDS: LOSARTAN POTASSIUM 50 MG TABLET PO SCH (09:00)
[2016-05-12] MEDS: CEFTRIAXONE 1 G PREMIX 50 ML IV SCH ×2 (09:00→13:31)
[2016-05-12] MEDS: IPRATROPIUM/ALBUTEROL 0.5-3(2.5)MG/3ML NEB INH PRN (19:47)
[2016-05-12] MEDS: ATORVASTATIN CALCIUM 40MG TABLET PO SCH (21:26)
[2016-05-13] VITALS (13 sets, daily range): BP systolic 99–153; BP diastolic 51–80
[2016-05-13] MEDS: METHYLPREDNISOLONE SOD SUCC 40 MG/ML VIAL IV SCH ×3 (05:18→21:19)
[2016-05-13] MEDS: IPRATROPIUM/ALBUTEROL 0.5-3(2.5)MG/3ML NEB INH PRN ×5 (05:38→20:11)
[2016-05-13] MEDS: BUDESONIDE 0.5MG/2ML NEB HHN SCH ×2 (07:39→20:09)
[2016-05-13] MEDS: HEPARIN 5000 UNITS/ML VIAL SUBCUT SCH ×2 (09:07→21:00)
[2016-05-13] MEDS: LOSARTAN POTASSIUM 50 MG TABLET PO SCH (09:08)
[2016-05-13] MEDS: SEVELAMER CARBONATE 800 MG TABLET PO SCH ×3 (09:08→18:48)
[2016-05-13] MEDS: FOLIC ACID/VITAMIN B COMP W-C TABLET PO SCH (09:08)
[2016-05-13] MEDS: CINACALCET HCL 60MG TABLET PO SCH (09:08)
[2016-05-13] MEDS: CARVEDILOL 12.5MG TABLET PO SCH ×2 (09:08→21:00)
[2016-05-13] MEDS: NIFEDIPINE XL 60MG TAB PO SCH (09:08)
[2016-05-13] MEDS: LACTOBACILLUS GG CAPSULE PO SCH (09:08)
[2016-05-13] MEDS: CEFTRIAXONE 1 G PREMIX 50 ML IV SCH (14:13)
[2016-05-13] MEDS: ATORVASTATIN CALCIUM 40MG TABLET PO SCH (21:21)
[2016-05-13] MEDS: EPOETIN ALFA 4000UNITS/ML VIAL SUBCUT SCH (21:22)
[2016-05-14] VITALS (21 sets, daily range): BP systolic 98–148; BP diastolic 49–87
[2016-05-14] MEDS: RACEPINEPHRINE 2.25% 0.5ML NEB VIAL HHN PRN (00:06)
[2016-05-14] MEDS: IPRATROPIUM/ALBUTEROL 0.5-3(2.5)MG/3ML NEB INH PRN ×5 (00:29→20:22)
[2016-05-14] MEDS: METHYLPREDNISOLONE SOD SUCC 40 MG/ML VIAL IV SCH ×2 (05:15→20:18)
[2016-05-14 06:37] LABS: HEMOGLOBIN. 10.6 g/dL (12.0-16.0); MEAN CORPUSCULAR HEMOGLOBIN 30.1 pg (28.0-32.0); MEAN CORPUSCULAR VOLUME 91.2 fL (81.0-99.0); PLATELET 262 x1000/uL (130-400); RED CELL DISTRIBUTION WIDTH 14.6 % (11.6-14.6)
[2016-05-14 07:04] LABS: DIFFERENTIAL COMMENT 1
[2016-05-14] MEDS: BUDESONIDE 0.5MG/2ML NEB HHN SCH ×2 (07:53→20:21)
[2016-05-14 07:58] LABS: CALCIUM 8.4 mg/dL (8.5-10.1); PHOSPHORUS 6.1 mg/dL (2.5-4.9)
[2016-05-14] MEDS: FOLIC ACID/VITAMIN B COMP W-C TABLET PO SCH (08:37)
[2016-05-14] MEDS: SEVELAMER CARBONATE 800 MG TABLET PO SCH ×3 (08:37→18:16)
[2016-05-14] MEDS: LACTOBACILLUS GG CAPSULE PO SCH (08:37)
[2016-05-14] MEDS: CINACALCET HCL 60MG TABLET PO SCH (08:37)
[2016-05-14] MEDS: HEPARIN 5000 UNITS/ML VIAL SUBCUT SCH ×2 (08:39→20:18)
[2016-05-14] MEDS: CEFTRIAXONE 1 G PREMIX 50 ML IV SCH (08:40)
[2016-05-14] MEDS: LOSARTAN POTASSIUM 50 MG TABLET PO SCH ×2 (08:40→18:16)
[2016-05-14] MEDS: NIFEDIPINE XL 60MG TAB PO SCH (08:40)
[2016-05-14] MEDS: CARVEDILOL 12.5MG TABLET PO SCH ×2 (08:40→20:19)
[2016-05-14 09:44] LABS: PLATELET ESTIMATE NORMAL
[2016-05-14] MEDS: ATORVASTATIN CALCIUM 40MG TABLET PO SCH (20:19)
[2016-05-15] VITALS (11 sets, daily range): BP systolic 109–146; BP diastolic 52–87
[2016-05-15 06:44] LABS: HEMATOCRIT. 33.4 % (36.0-48.0); HEMOGLOBIN. 10.8 g/dL (12.0-16.0); MEAN CORPUSCULAR HEMOGLOBIN 30.4 pg (28.0-32.0); MEAN CORPUSCULAR HGB CONC 32.4 g/dL (31.0-37.0); MEAN PLATELET VOLUME 8.1 fl (7.4-10.4); PLATELET 234 x1000/uL (130-400); RED BLOOD CELL COUNT 3.55 mill/uL (4.2-5.4); RED CELL DISTRIBUTION WIDTH 14.8 % (11.6-14.6); WHITE BLOOD COUNT 11.2 x1000/uL (4.5-11.0)
[2016-05-15] MEDS: IPRATROPIUM/ALBUTEROL 0.5-3(2.5)MG/3ML NEB INH PRN ×3 (07:33→15:15)
[2016-05-15] MEDS: BUDESONIDE 0.5MG/2ML NEB HHN SCH (07:34)
[2016-05-15 07:45] LABS: DIFFERENTIAL COMMENT 1
[2016-05-15 07:59] LABS: CALCIUM 8.6 mg/dL (8.5-10.1); PHOSPHORUS 5.4 mg/dL (2.5-4.9)
[2016-05-15] MEDS: METHYLPREDNISOLONE SOD SUCC 40 MG/ML VIAL IV SCH (08:52)
[2016-05-15] MEDS: HEPARIN 5000 UNITS/ML VIAL SUBCUT SCH (08:52)
[2016-05-15] MEDS: SEVELAMER CARBONATE 800 MG TABLET PO SCH ×3 (08:53→18:00)
[2016-05-15] MEDS: CARVEDILOL 12.5MG TABLET PO SCH (08:53)
[2016-05-15] MEDS: LOSARTAN POTASSIUM 50 MG TABLET PO SCH (08:53)
[2016-05-15] MEDS: FOLIC ACID/VITAMIN B COMP W-C TABLET PO SCH (08:53)
[2016-05-15] MEDS: LACTOBACILLUS GG CAPSULE PO SCH (08:53)
[2016-05-15] MEDS: CINACALCET HCL 60MG TABLET PO SCH (08:53)
[2016-05-15] MEDS ORDERED: NIFEDIPINE XL 30MG TAB PO SCH (09:00)
[2016-05-15 10:23] LABS: PLATELET ESTIMATE NORMAL
[2016-05-15 10:24] LABS: GIANT PLATELETS FEW
[2016-05-15] MEDS ORDERED: SODIUM POLYSTYRENE SULFONATE 15 G/60 ML BOT PO NR (13:30)
== END 2016-05-15 18:00 | disposition home or self-care (01) | DRG 438 ==
LOC: ER 06:25 → 5EST 07:43
PROVIDERS: ADMIT Internal Medicine; ATTEND Internal Medicine
PROC: 5A1D60Z (ICD-10-PCS; principal; 2016-05-10)
DX: K85.90 Acute pancreatitis without necrosis or infection, unspecified (principal); I50.33 Acute on chronic diastolic (congestive) heart failure; J96.90 Respiratory failure, unspecified, unspecified whether with hypoxia or hypercapnia; N18.6 End stage renal disease; I13.2 Hypertensive heart and chronic kidney disease with heart failure and with stage 5 chronic kidney disease, or end stage renal disease; N25.81 Secondary hyperparathyroidism of renal origin; J39.8 Other specified diseases of upper respiratory tract; I25.2 Old myocardial infarction; E87.5 Hyperkalemia; E83.52 Hypercalcemia; J98.8 Other specified respiratory disorders; D63.1 Anemia in chronic kidney disease; R74.8 Abnormal levels of other serum enzymes; E83.39 Other disorders of phosphorus metabolism; F41.9 Anxiety disorder, unspecified; I25.10 Atherosclerotic heart disease of native coronary artery without angina pectoris; I27.2 Other secondary pulmonary hypertension; J32.9 Chronic sinusitis, unspecified; R06.1 Stridor; Z53.20 Procedure and treatment not carried out because of patient's decision for unspecified reasons; I27.81 Cor pulmonale (chronic); J34.2 Deviated nasal septum; K80.20 Calculus of gallbladder without cholecystitis without obstruction; Z79.899 Other long term (current) drug therapy; Z99.2 Dependence on renal dialysis; Z82.49 Family history of ischemic heart disease and other diseases of the circulatory system; Z90.49 Acquired absence of other specified parts of digestive tract; Z88.5 Allergy status to narcotic agent; Z88.8 Allergy status to other drugs, medicaments and biological substances
CPT/HCPCS: 36415; 36600; 71010; 80048; 80053; 82375; 82550; 82553; 82805; 83690; 83735; 83880; 84100; 84478; 84484; 85025; 85610; 85730; 87040; 93005; 94640; 94664; 99285; J0696; J0885; J1644; J2920; J7030; J7050; J7620; J7626

== ENCOUNTER 2017-02-04 09:59 | Emergency (ER) | payer MEDICARE, OTHER ==
[2017-02-04] VITALS (7 sets, daily range): BP systolic 188–204; BP diastolic 100–114
[~2017-02-04] VITALS: Ht 157.5 cm; Wt 64.0 kg
[2017-02-04] MEDS ORDERED: CLONIDINE 0.1MG TABLET PO ONE (10:45)
[2017-02-04 11:01] LABS: BASOPHILS % 0.5 % (0.0-2.0); EOSINOPHILS % 0.3 % (0.0-5.0); HEMATOCRIT. 34.2 % (36.0-48.0); HEMOGLOBIN. 11.4 g/dL (12.0-16.0); LYMPHOCYTES % 15.7 % (20.0-50.0); MEAN CORPUSCULAR HEMOGLOBIN 29.8 pg (28.0-32.0); MEAN CORPUSCULAR VOLUME 89.4 fL (81.0-99.0); MEAN PLATELET VOLUME 7.8 fl (7.4-10.4); MONOCYTES % 9.4 % (2.0-8.0); NEUTROPHILS % 74.1 % (40.0-76.0); PLATELET 238 x1000/uL (130-400); RED BLOOD CELL COUNT 3.83 mill/uL (4.2-5.4); RED CELL DISTRIBUTION WIDTH 14.2 % (11.6-14.6)
[2017-02-04 11:06] LABS: PROTHROMBIN TIME 10.7 sec (9.4-11.6)
[2017-02-04 11:16] LABS: CARBON DIOXIDE 33 mEq/L (21-32); CHLORIDE 97 mEq/L (98-107)
[2017-02-04] MEDS ORDERED: CEFAZOLIN 1000MG PREMIX 50 ML IV ONE (11:45)
[2017-02-04] MEDS ORDERED: LIDOCAINE HCL 1% 20ML VIAL (Pyxis) INJ ONE (13:17)
[2017-02-04] MEDS ORDERED: SODIUM BICARBONATE 4% (2.4MEQ) 5ML VIAL IV ONE (13:17)
== END 2017-02-04 16:10 | disposition home or self-care (01) ==
LOC: ER 11:14
DX: T82.49XA Other complication of vascular dialysis catheter, initial encounter (principal); I13.2 Hypertensive heart and chronic kidney disease with heart failure and with stage 5 chronic kidney disease, or end stage renal disease; N18.6 End stage renal disease; I50.9 Heart failure, unspecified; Z88.5 Allergy status to narcotic agent; Z99.2 Dependence on renal dialysis; Z88.8 Allergy status to other drugs, medicaments and biological substances
CPT/HCPCS: 36415; 36558; 76937; 77001; 80053; 85025; 85610; 96365; 99285; C1750; C1769; C1887; J0690; J1642; J3490; J7040

== ENCOUNTER 2017-02-05 02:37 | Emergency (ER) | payer MEDICARE ==
[~2017-02-05] VITALS: Ht 157.5 cm; Wt 64.0 kg
[2017-02-05 06:35] VITALS: BP 201/95
== END 2017-02-05 06:35 | disposition home or self-care (01) ==
LOC: ER 02:37
DX: T82.838A Hemorrhage due to vascular prosthetic devices, implants and grafts, initial encounter (principal); I13.2 Hypertensive heart and chronic kidney disease with heart failure and with stage 5 chronic kidney disease, or end stage renal disease; N18.6 End stage renal disease; I50.9 Heart failure, unspecified; Z99.2 Dependence on renal dialysis; Z88.5 Allergy status to narcotic agent; Z88.8 Allergy status to other drugs, medicaments and biological substances
CPT/HCPCS: 99283

== ENCOUNTER 2017-04-04 15:05 | Inpatient (IN) | payer MEDICARE, OTHER ==
[~2017-04-04] VITALS: Ht 160 cm; Wt 67.6 kg
[2017-04-04 16:17] LABS: BASOPHILS % 0.6 % (0.0-2.0); EOSINOPHILS % 0.1 % (0.0-5.0); HEMATOCRIT. 39.9 % (36.0-48.0); HEMOGLOBIN. 12.8 g/dL (12.0-16.0); MEAN CORPUSCULAR HEMOGLOBIN 28.8 pg (28.0-32.0); MEAN CORPUSCULAR VOLUME 89.9 fL (81.0-99.0); MEAN PLATELET VOLUME 8.6 fl (7.4-10.4); MONOCYTES % 6.6 % (2.0-8.0); NEUTROPHILS % 84.7 % (40.0-76.0); PLATELET 233 x1000/uL (130-400); RED BLOOD CELL COUNT 4.44 mill/uL (4.2-5.4); RED CELL DISTRIBUTION WIDTH 15.2 % (11.6-14.6)
[2017-04-04 16:27] LABS: INR 1.1; PROTHROMBIN TIME 11.6 sec (9.4-11.6)
[2017-04-04 16:32] LABS: CHLORIDE 100 mEq/L (98-107); PHOSPHORUS 5.7 mg/dL (2.5-4.9)
[2017-04-04 16:37] LABS: TROPONIN I 0.37 ng/mL (0.00-0.04)
[2017-04-04] MEDS ORDERED: DEXTROSE 50% WATER 50ML SYRINGE IV ONE (16:45)
[2017-04-04] MEDS ORDERED: SODIUM BICARBONATE 8.4% 1 MEQ/ML 50ML SYR IV ONE (16:45)
[2017-04-04] MEDS ORDERED: INSULIN REGULAR (HUMULIN R) 300UNITS/3ML IV ONE (16:45)
[2017-04-04] MEDS ORDERED: CALCIUM CHLORIDE 1GM/10ML SYR IV ONE (16:45)
[2017-04-04] MEDS ORDERED: LABETALOL 5MG/ML SYR 20 MG/4 ML SYRINGE IV ONE ×2 (17:15→19:00)
[2017-04-04] MEDS ORDERED: HYDRALAZINE 20MG/ML VIAL IV ONE (17:15)
[2017-04-04] MEDS ORDERED: CLONIDINE 0.1MG TABLET PO PRN (17:30)
[2017-04-04] MEDS ORDERED: NA PHOS,M-B/NA PHOS,DI-BA ENEMA 118ML PR PRN (17:30)
[2017-04-04] MEDS ORDERED: LORAZEPAM 0.5MG TABLET PO PRN (17:30)
[2017-04-04] MEDS ORDERED: ONDANSETRON HCL 4MG/2ML VIAL IV PRN (17:30)
[2017-04-04] MEDS ORDERED: MAGNESIUM/ALUMINUM HYDROXIDE/SIMETHICONE 30ML UDC PO PRN (17:30)
[2017-04-04] MEDS ORDERED: ACETAMINOPHEN 325MG TABLET PO PRN (17:30)
[2017-04-04] MEDS ORDERED: NITROGLYCERIN 0.4MG TABLET SL SL PRN (17:30)
[2017-04-04] MEDS ORDERED: DOCUSATE SODIUM 100MG CAPSULE PO PRN (17:30)
[2017-04-04] MEDS ORDERED: IPRATROPIUM/ALBUTEROL 0.5-3(2.5)MG/3ML NEB INH PRN (17:30)
[2017-04-04] MEDS ORDERED: DIPHENHYDRAMINE 50MG/ML VIAL IV PRN (17:30)
[2017-04-04] MEDS ORDERED: ALBUTEROL (0.083%) 2.5MG/3ML NEB HHN STA (17:42)
[2017-04-04] MEDS: SEVELAMER CARBONATE 800 MG TABLET PO SCH ×2 (19:00→21:21)
[2017-04-04 20:00] VITALS: BP_SYST 198; BP_DIAS 123; BP_DIAS 128
[2017-04-04] MEDS: ENOXAPARIN 60MG/0.6ML SYR SUBCUT SCH ×2 (20:00→20:58)
[2017-04-04] MEDS: CARVEDILOL 12.5MG TABLET PO SCH (20:53)
[2017-04-04] MEDS: NIFEDIPINE XL 60MG TAB PO SCH (20:53)
[2017-04-04] MEDS: LOSARTAN POTASSIUM 100 MG TABLET PO SCH ×2 (20:53→21:29)
[2017-04-04] MEDS: FAMOTIDINE 20MG/2ML VIAL IV SCH ×2 (20:54→21:00)
[2017-04-04] MEDS ORDERED: PIPERACILLIN/TAZ 2.25G PREMIX 50 ML IV SCH (21:00)
[2017-04-04] MEDS ORDERED: ZOLPIDEM TARTRATE 5MG TABLET PO PRN (21:00)
[2017-04-04] MEDS ORDERED: CINACALCET HCL 90MG TABLET PO SCH (21:00)
[2017-04-04] MEDS ORDERED: NIFEDIPINE XL 60MG TAB PO SCH (21:00)
[2017-04-04] MEDS: GUAIFENESIN 200MG/10ML SUGAR FREE UDC PO PRN (21:20)
[2017-04-04] MEDS: PIPERACILLIN/TAZ 2.25G PREMIX 50 ML IV SCH (21:21)
[2017-04-04 22:00] VITALS: BP 184/106
[2017-04-04] MEDS ORDERED: HYDRALAZINE HCL 50MG TABLET PO SCH (22:00)
[2017-04-04] MEDS ORDERED: VANCOMYCIN 1250MG in DEXTROSE 5% WATER 250ML IV NR (22:00)
[2017-04-05] VITALS (12 sets, daily range): BP systolic 116–158; BP diastolic 52–97
[2017-04-05 01:38] LABS: CREATINE KINASE MB FRACTION 3.4 ng/mL (0.5-3.6)
[2017-04-05 01:44] LABS: TROPONIN I 0.43 ng/mL (0.00-0.04)
[2017-04-05] MEDS: GUAIFENESIN 200MG/10ML SUGAR FREE UDC PO PRN (02:29)
[2017-04-05] MEDS ORDERED: CARV25TA47 PO (05:34)
[2017-04-05] MEDS ORDERED: LIDO30CR TP (05:34)
[2017-04-05] MEDS ORDERED: LOSA25TA12 PO (05:34)
[2017-04-05] MEDS ORDERED: NIFE60TA77 PO (05:34)
[2017-04-05] MEDS ORDERED: HYDR-4133 PO (05:34)
[2017-04-05] MEDS ORDERED: REN400 PO (05:34)
[2017-04-05] MEDS: PIPERACILLIN/TAZ 2.25G PREMIX 50 ML IV SCH ×3 (05:37→20:20)
[2017-04-05 06:29] LABS: BASOPHILS % 0.3 % (0.0-2.0); EOSINOPHILS % 0.1 % (0.0-5.0); HEMATOCRIT. 34.4 % (36.0-48.0); LYMPHOCYTES % 12.1 % (20.0-50.0); MEAN CORPUSCULAR HEMOGLOBIN 28.6 pg (28.0-32.0); MEAN CORPUSCULAR VOLUME 89.5 fL (81.0-99.0); MEAN PLATELET VOLUME 8.2 fl (7.4-10.4); MONOCYTES % 12.6 % (2.0-8.0); NEUTROPHILS % 74.9 % (40.0-76.0); PLATELET 210 x1000/uL (130-400); RED BLOOD CELL COUNT 3.84 mill/uL (4.2-5.4); RED CELL DISTRIBUTION WIDTH 15.2 % (11.6-14.6)
[2017-04-05 07:05] LABS: CHLORIDE 98 mEq/L (98-107); CREATINE KINASE 68 IU/L (26-192)
[2017-04-05 07:23] LABS: CREATINE KINASE MB FRACTION 3.3 ng/mL (0.5-3.6)
[2017-04-05] MEDS: SEVELAMER CARBONATE 800 MG TABLET PO SCH ×3 (07:51→17:26)
[2017-04-05] MEDS: ASPIRIN 325MG EC TABLET PO SCH (08:01)
[2017-04-05] MEDS: LOSARTAN POTASSIUM 100 MG TABLET PO SCH (08:01)
[2017-04-05] MEDS: LACTOBACILLUS GG CAPSULE PO SCH (08:01)
[2017-04-05] MEDS: CARVEDILOL 12.5MG TABLET PO SCH ×2 (08:01→20:21)
[2017-04-05] MEDS: FOLIC ACID/VITAMIN B COMP W-C TABLET PO SCH (08:02)
[2017-04-05] MEDS ORDERED: FOLIC ACID/VITAMIN B COMP W-C TABLET PO SCH (09:00)
[2017-04-05] MEDS ORDERED: NIFEDIPINE XL 60MG TAB PO SCH (09:00)
[2017-04-05] MEDS: GUAIFENESIN/CODEINE 100-10MG/5ML UDC PO PRN (09:24)
[2017-04-05] MEDS: METHYLPREDNISOLONE SOD SUCC 125 MG/2 ML VIAL IV SCH (09:24)
[2017-04-05] MEDS: TRAMADOL 50MG TABLET PO PRN ×2 (11:26→17:27)
[2017-04-05] MEDS: ENOXAPARIN 30MG/0.3ML SYR SUBCUT SCH (20:00)
[2017-04-05] MEDS: FAMOTIDINE 20MG/2ML VIAL IV SCH (20:20)
[2017-04-05] MEDS: NIFEDIPINE XL 60MG TAB PO SCH (21:46)
[2017-04-06] VITALS (15 sets, daily range): BP systolic 107–145; BP diastolic 58–92
[2017-04-06] MEDS: PIPERACILLIN/TAZ 2.25G PREMIX 50 ML IV SCH ×3 (05:35→21:52)
[2017-04-06 07:11] LABS: BASOPHILS % 0.3 % (0.0-2.0); HEMOGLOBIN. 11.7 g/dL (12.0-16.0); LYMPHOCYTES % 13.4 % (20.0-50.0); MEAN CORPUSCULAR HEMOGLOBIN 29.1 pg (28.0-32.0); MEAN CORPUSCULAR VOLUME 89.7 fL (81.0-99.0); MEAN PLATELET VOLUME 8.6 fl (7.4-10.4); MONOCYTES % 9.9 % (2.0-8.0); NEUTROPHILS % 76.4 % (40.0-76.0); PLATELET 234 x1000/uL (130-400); RED BLOOD CELL COUNT 4.02 mill/uL (4.2-5.4); RED CELL DISTRIBUTION WIDTH 15.1 % (11.6-14.6)
[2017-04-06 07:33] LABS: PHOSPHORUS 5.3 mg/dL (2.5-4.9)
[2017-04-06 07:39] LABS: TROPONIN I 0.36 ng/mL (0.00-0.04)
[2017-04-06] MEDS: CARVEDILOL 12.5MG TABLET PO SCH ×2 (08:29→21:51)
[2017-04-06] MEDS: FOLIC ACID/VITAMIN B COMP W-C TABLET PO SCH (08:30)
[2017-04-06] MEDS: LACTOBACILLUS GG CAPSULE PO SCH (08:30)
[2017-04-06] MEDS: LOSARTAN POTASSIUM 100 MG TABLET PO SCH (09:00)
[2017-04-06] MEDS: SEVELAMER CARBONATE 800 MG TABLET PO SCH ×3 (10:00→17:15)
[2017-04-06] MEDS: ASPIRIN 325MG EC TABLET PO SCH (11:30)
[2017-04-06] MEDS: METHYLPREDNISOLONE SOD SUCC 125 MG/2 ML VIAL IV SCH (11:45)
[2017-04-06] MEDS: GUAIFENESIN/CODEINE 100-10MG/5ML UDC PO PRN ×2 (11:45→21:15)
[2017-04-06] MEDS ORDERED: VANCOMYCIN 1 G PREMIX 200 ML IV NR (15:00)
[2017-04-06] MEDS: NIFEDIPINE XL 60MG TAB PO SCH (21:51)
[2017-04-06] MEDS: MUPIROCIN 2% OINT 22GM NS SCH (21:52)
[2017-04-06] MEDS: BUDESONIDE 0.5MG/2ML NEB HHN SCH (22:00)
[2017-04-06] MEDS: IPRATROPIUM/ALBUTEROL 0.5-3(2.5)MG/3ML NEB INH SCH (22:00)
[2017-04-06] MEDS: ENOXAPARIN 30MG/0.3ML SYR SUBCUT SCH (22:04)
[2017-04-06] MEDS: FAMOTIDINE 20MG/2ML VIAL IV SCH (22:07)
[2017-04-06] MEDS: GUAIFENESIN 200MG/10ML SUGAR FREE UDC PO PRN (23:28)
[2017-04-07] VITALS (17 sets, daily range): BP systolic 111–199; BP diastolic 56–96
[2017-04-07 06:36] LABS: BASOPHILS % 0.3 % (0.0-2.0); HEMATOCRIT. 35.1 % (36.0-48.0); HEMOGLOBIN. 11.4 g/dL (12.0-16.0); LYMPHOCYTES % 13.3 % (20.0-50.0); MEAN CORPUSCULAR HEMOGLOBIN 28.8 pg (28.0-32.0); MEAN CORPUSCULAR VOLUME 88.9 fL (81.0-99.0); MEAN PLATELET VOLUME 8.6 fl (7.4-10.4); MONOCYTES % 8.7 % (2.0-8.0); NEUTROPHILS % 77.7 % (40.0-76.0); PLATELET 253 x1000/uL (130-400); RED BLOOD CELL COUNT 3.95 mill/uL (4.2-5.4); RED CELL DISTRIBUTION WIDTH 15.1 % (11.6-14.6)
[2017-04-07] MEDS: SEVELAMER CARBONATE 800 MG TABLET PO SCH ×3 (06:43→18:06)
[2017-04-07] MEDS: PIPERACILLIN/TAZ 2.25G PREMIX 50 ML IV SCH ×2 (06:43→12:38)
[2017-04-07] MEDS: GUAIFENESIN 200MG/10ML SUGAR FREE UDC PO PRN (06:46)
[2017-04-07] MEDS: CARVEDILOL 12.5MG TABLET PO SCH ×2 (08:42→20:30)
[2017-04-07] MEDS: FOLIC ACID/VITAMIN B COMP W-C TABLET PO SCH (08:52)
[2017-04-07] MEDS: LOSARTAN POTASSIUM 100 MG TABLET PO SCH (08:53)
[2017-04-07] MEDS: ASPIRIN 325MG EC TABLET PO SCH (08:53)
[2017-04-07] MEDS: MUPIROCIN 2% OINT 22GM NS SCH ×2 (08:53→20:31)
[2017-04-07] MEDS: METHYLPREDNISOLONE SOD SUCC 125 MG/2 ML VIAL IV SCH (08:54)
[2017-04-07] MEDS: LACTOBACILLUS GG CAPSULE PO SCH (08:56)
[2017-04-07] MEDS: BUDESONIDE 0.5MG/2ML NEB HHN SCH ×2 (09:15→20:56)
[2017-04-07] MEDS: IPRATROPIUM/ALBUTEROL 0.5-3(2.5)MG/3ML NEB INH SCH ×4 (09:15→20:56)
[2017-04-07] MEDS: FAMOTIDINE 20MG/2ML VIAL IV SCH (20:29)
[2017-04-07] MEDS: NIFEDIPINE XL 60MG TAB PO SCH (20:30)
[2017-04-07] MEDS: ENOXAPARIN 30MG/0.3ML SYR SUBCUT SCH (20:31)
[2017-04-07] MEDS: PIPERACILLIN/TAZOBACTAM 2.25 G in SODIUM CHLORIDE 0.9% 50 ML IV SCH (20:31)
[2017-04-08] VITALS (12 sets, daily range): BP systolic 106–170; BP diastolic 46–104
[2017-04-08] MEDS: PIPERACILLIN/TAZOBACTAM 2.25 G in SODIUM CHLORIDE 0.9% 50 ML IV SCH ×2 (04:16→12:26)
[2017-04-08 07:01] LABS: BASOPHILS % 0.2 % (0.0-2.0); HEMATOCRIT. 38.3 % (36.0-48.0); HEMOGLOBIN. 12.7 g/dL (12.0-16.0); LYMPHOCYTES % 13.1 % (20.0-50.0); MEAN CORPUSCULAR HEMOGLOBIN 29.5 pg (28.0-32.0); MEAN CORPUSCULAR VOLUME 88.7 fL (81.0-99.0); MEAN PLATELET VOLUME 8.4 fl (7.4-10.4); MONOCYTES % 7.5 % (2.0-8.0); NEUTROPHILS % 79.2 % (40.0-76.0); PLATELET 286 x1000/uL (130-400); RED BLOOD CELL COUNT 4.32 mill/uL (4.2-5.4); RED CELL DISTRIBUTION WIDTH 15.3 % (11.6-14.6)
[2017-04-08 07:47] LABS: PHOSPHORUS 5.3 mg/dL (2.5-4.9)
[2017-04-08] MEDS: FOLIC ACID/VITAMIN B COMP W-C TABLET PO SCH (08:14)
[2017-04-08] MEDS: SEVELAMER CARBONATE 800 MG TABLET PO SCH ×3 (08:14→17:20)
[2017-04-08] MEDS: LACTOBACILLUS GG CAPSULE PO SCH (08:14)
[2017-04-08] MEDS: METHYLPREDNISOLONE SOD SUCC 125 MG/2 ML VIAL IV SCH (08:16)
[2017-04-08] MEDS: CARVEDILOL 12.5MG TABLET PO SCH (08:19)
[2017-04-08] MEDS: LOSARTAN POTASSIUM 100 MG TABLET PO SCH (08:19)
[2017-04-08] MEDS: ASPIRIN 325MG EC TABLET PO SCH (08:20)
[2017-04-08] MEDS: MUPIROCIN 2% OINT 22GM NS SCH (08:20)
[2017-04-08] MEDS: IPRATROPIUM/ALBUTEROL 0.5-3(2.5)MG/3ML NEB INH SCH ×3 (08:45→16:30)
== END 2017-04-08 18:00 | disposition left against medical advice (07) | DRG 871 ==
LOC: ER 17:01 → 3WST 17:07 → EDBEDREQ 17:10 → EDBEDREQTM 17:10 → SUPCPDRO 17:16 → ENRESERV 17:21
PROVIDERS: ADMIT Internal Medicine; ATTEND Internal Medicine
PROC: 5A1D70Z Performance of Urinary Filtration, Intermittent, Less than 6 Hours Per Day (ICD-10-PCS; principal; 2017-04-04)
PROC: 5A1D70Z Performance of Urinary Filtration, Intermittent, Less than 6 Hours Per Day (ICD-10-PCS; 2017-04-05)
PROC: 5A1D70Z Performance of Urinary Filtration, Intermittent, Less than 6 Hours Per Day (ICD-10-PCS; 2017-04-06)
PROC: 5A1D70Z Performance of Urinary Filtration, Intermittent, Less than 6 Hours Per Day (ICD-10-PCS; 2017-04-07)
PROC: 5A1D70Z Performance of Urinary Filtration, Intermittent, Less than 6 Hours Per Day (ICD-10-PCS; 2017-04-08)
DX: A41.9 Sepsis, unspecified organism (principal); I50.41 Acute combined systolic (congestive) and diastolic (congestive) heart failure; I21.4 Non-ST elevation (NSTEMI) myocardial infarction; I13.2 Hypertensive heart and chronic kidney disease with heart failure and with stage 5 chronic kidney disease, or end stage renal disease; E87.2 Acidosis; E83.52 Hypercalcemia; E83.39 Other disorders of phosphorus metabolism; I27.20 Pulmonary hypertension, unspecified; N18.6 End stage renal disease; E87.1 Hypo-osmolality and hyponatremia; N25.81 Secondary hyperparathyroidism of renal origin; E87.5 Hyperkalemia; D63.8 Anemia in other chronic diseases classified elsewhere; I25.10 Atherosclerotic heart disease of native coronary artery without angina pectoris; Z53.21 Procedure and treatment not carried out due to patient leaving prior to being seen by health care provider; I16.0 Hypertensive urgency; I27.81 Cor pulmonale (chronic); J98.01 Acute bronchospasm; Z82.49 Family history of ischemic heart disease and other diseases of the circulatory system; Z86.19 Personal history of other infectious and parasitic diseases; Z90.49 Acquired absence of other specified parts of digestive tract; Z99.2 Dependence on renal dialysis; Z91.14 Patient's other noncompliance with medication regimen; Z88.6 Allergy status to analgesic agent; Z88.8 Allergy status to other drugs, medicaments and biological substances; Z79.899 Other long term (current) drug therapy; Z98.891 History of uterine scar from previous surgery
CPT/HCPCS: 36415; 71045; 80048; 80053; 80061; 80202; 82550; 82553; 83036; 83605; 83735; 84100; 84443; 84484; 85025; 85379; 85610; 85730; 86850; 86900; 87040; 87804; 93005; 93306; 93970; 94640; 96374; 96375; 99291; J0360; J1200; J1650; J1815; J2543; J2930; J3370; J3490; J7030; J7050; J7060; J7620; J7626